=== PATIENT | male | born 1995 | race Caucasian/White ===

== ENCOUNTER 2017-04-12 17:22 | Emergency (ER) | payer SELFPAY ==
[~2017-04-12] VITALS: Ht 175.3 cm; Wt 86.2 kg
[2017-04-12] MEDS ORDERED: TYLENOL WITH C1 EACH PO (17:33)
== END 2017-04-12 17:48 | disposition home or self-care (01) ==
LOC: ED 17:22
DX: Z00.8 Encounter for other general examination (principal)

== ENCOUNTER 2018-03-16 13:10 | Emergency (ER) | payer OTHER ==
[~2018-03-16] VITALS: Ht 175.3 cm; Wt 86.2 kg
[~2018-03-16 13:10] MED LIST: TYLENOL WITH C1 EACH PO
[2018-03-16] MEDS ORDERED: IBUPROFEN600 MG PO (13:53)
[2018-03-16] MEDS ORDERED: NORCO 5-325 TA1 EACH PO (13:53)
== END 2018-03-16 14:15 | disposition home or self-care (01) ==
LOC: ED 13:10
PROC: 2W3CX1Z Immobilization of Right Lower Arm using Splint (ICD-10-PCS; principal; 2018-03-16)
DX: S62.316A Displaced fracture of base of fifth metacarpal bone, right hand, initial encounter for closed fracture (principal); F17.200 Nicotine dependence, unspecified, uncomplicated; Z88.0 Allergy status to penicillin; Z88.1 Allergy status to other antibiotic agents; W22.8XXA Striking against or struck by other objects, initial encounter
CPT/HCPCS: 29125; 73130; 99283

== ENCOUNTER 2022-05-19 22:31 | Emergency (ER) | payer OTHER ==
[~2022-05-19] VITALS: Ht 175.3 cm; Wt 104.0 kg
[~2022-05-19 22:31] MED LIST changes: +IBUPROFEN600 MG PO; +NORCO 5-325 TA1 EACH PO
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
[2022-05-20] MEDS ORDERED: CEPHALEXIN500 M1 PO (01:02)
== END 2022-05-20 01:38 | disposition home or self-care (01) ==
LOC: ED 22:31
DX: S01.01XA Laceration without foreign body of scalp, initial encounter (principal); Z23 Encounter for immunization; Y04.8XXA Assault by other bodily force, initial encounter; F17.200 Nicotine dependence, unspecified, uncomplicated; Z88.0 Allergy status to penicillin; Z88.1 Allergy status to other antibiotic agents
CPT/HCPCS: 12002; 36415; 70450; 70486; 74177; 80053; 85025; 90471; 90715; 99283-25; A9270; J7030; Q9967